=== PATIENT | male | born 1955 | race Two or more races ===

== ENCOUNTER 2020-04-19 15:10 | Outpatient (CLI) | payer OTHER ==
[~2020-04-19 15:10] MED LIST: ADULT ASPIRIN81 MG; CRESTOR5 MG; DIOVAN HCT 320/1 TAB; METFORMIN HYDRO25 GM
== END 2020-04-19 18:00 | disposition home or self-care (01) ==
LOC: LAB 15:10
PROVIDERS: ATTEND Surgery
DX: R97.20 Elevated prostate specific antigen [PSA] (principal)

== ENCOUNTER 2020-05-26 07:38 | Outpatient (CLI) | payer OTHER | END 2020-05-26 07:51 | disposition home or self-care (01) | LOC: SONOGRAMA 07:38 | PROVIDERS: ATTEND Surgery | DX: C61 Malignant neoplasm of prostate (principal); R97.20 Elevated prostate specific antigen [PSA] ==

== ENCOUNTER 2022-04-02 12:00 | Inpatient (IN) | payer OTHER ==
[~2022-04-02] VITALS: Ht 165.1 cm; Wt 88.9 kg
[2022-04-06] MEDS ORDERED: DIOVAN320 MG PO (13:29)
[2022-04-06] MEDS ORDERED: HUMULIN R100 UNIT/1 (13:30)
[2022-04-06] MEDS ORDERED: LANTUS (13:30)
[2022-04-06] MEDS ORDERED: UROXATRAL10 MG PO (13:31)
[2022-04-06] MEDS ORDERED: CIALIS5 MG PO (13:32)
[2022-04-06] MEDS ORDERED: OMEPRAZOLE MAGN20 MG PO (13:33)
[2022-04-06] MEDS ORDERED: MULTIVITAM (13:33)
[2022-04-06] MEDS ORDERED: VICTOZ PO (13:40)
[2022-04-09] MEDS ORDERED: MULTI VITAMIN1 EACH (09:45)
[2022-04-09] MEDS ORDERED: VICTOZA 3-0.6 MG/0.1 (09:46)
[2022-04-10] MEDS ORDERED: ULTRACET PO (08:13)
[2022-04-10] MEDS ORDERED: RECTICARE30 GM TOP (08:13)
== END 2022-04-10 12:44 | disposition home or self-care (01) | DRG 376 ==
LOC: O/R 04-09 06:20 → SURH 04-09 11:15 → SURG 04-09 11:41
PROVIDERS: ADMIT Surgery; ATTEND Surgery
PROC: 3E0T3BZ Introduction of Anesthetic Agent into Peripheral Nerves and Plexi, Percutaneous Approach (ICD-10-PCS; 2022-04-09)
PROC: 0DJD8ZZ Inspection of Lower Intestinal Tract, Via Natural or Artificial Opening Endoscopic (ICD-10-PCS; 2022-04-09)
PROC: 0DBP8ZZ Excision of Rectum, Via Natural or Artificial Opening Endoscopic (ICD-10-PCS; principal; 2022-04-09 17:30)
DX: C7A.026 Malignant carcinoid tumor of the rectum (principal); Z20.822 Contact with and (suspected) exposure to COVID-19
CPT/HCPCS: 0184T; 64430; 45300

== ENCOUNTER 2025-04-08 10:00 | Day surgery (SDC) | payer OTHER ==
[2025-03-30 09:23] LABS: BASO % 0.3 % (0.1-1.2); EOS # 0.18 (0.04-0.54); EOS % 2.9 % (0.7-7.0); LYMPH # 0.93 (1.18-3.74); LYMPH % 15.1 % (19.3-53.1); MEAN PLATELET VOLUME 11.10 fl (9.4-12.4); MONO # 0.59 (0.24-0.82); MONO % 9.6 % (4.7-12.5); NEUT # 4.41 (1.56-6.13); NEUT % 71.9 % (34.0-71.1); RED CELL DISTRIBUTION WIDTH 11.8 % (11.6-14.4)
[2025-03-30 09:47] LABS: INR 1.09
[2025-03-30 09:58] LABS: BUN CREA RATIO 18.0 (7.0-25.0); CREATININE SERUM 1.56 mg/dL (0.70-1.30); GFR 44.22; GLUCOSE FASTING 152.0 mg/dL (65-100); OSMOLALITY SERUM 292.0 MOSM/KG (275-295)
[2025-04-07 07:29] LABS: URINE APPEARANCE Clear; URINE BILIRRUBIN Negative (NEGATIVE); URINE BLOOD Trace; URINE COLOR Yellow; URINE GLUCOSE Negative (NEGATIVE); URINE KETONE Negative (NEGATIVE); URINE LEUKOCYTE Negative; URINE NITRATE Negative; URINE PROTEIN Negative (NEGATIVE); URINE UROBILINOGEN 0.2 E.U./dl
[2025-04-07 07:32] LABS: URINE BACTERIA 27.5 uL (0.0-1933); URINE RBC 3.6 uL (0.0-20.8)
[2025-04-07 07:55] LABS: URINE CAST 0.14 uL (0.0-1.40); URINE EPITHELIAL CELLS 1.0 uL (0.0-38.8); URINE WBC 1.5 uL (0.0-23.2)
[~2025-04-08 10:00] MED LIST changes: +CEFAZOLIN SODIUM 1,000 MG VIAL ONE; +CHLORTHALIDONE25 MG PO; +CIALIS5 MG PO; +DIOVAN320 MG PO; +HUMULIN R100 UNIT/1; +LANTUS; +LIPITOR20 MG; +MOUNJARO15 MG/0.5; +MULTI VITAMIN1 EACH; +MULTIVITAM; +OMEPRAZOLE MAGN20 MG PO; +RECTICARE30 GM TOP; +ULTRACET PO; +UROXATRAL10 MG PO; +VICTOZ PO; +VICTOZA 3-0.6 MG/0.1
[2025-04-08] MEDS ORDERED: BUPIVACAINE HCL/MPF 0.5% 30ML VIAL ONE (10:31)
[2025-04-08] MEDS ORDERED: SUGAMMADEX SODIUM 200 MG/2 ML VIAL IV ONE (11:59)
[2025-04-08] MEDS ORDERED: MIRALAX17 GM PO (12:06)
[2025-04-08] MEDS ORDERED: TRAMADOL HCL50 MG PO (12:06)
[2025-04-08] MEDS ORDERED: TYLENOL ARTHRI650 MG PO (12:06)
[2025-04-12] MEDS ORDERED: CEFAZOLIN SODIUM 1,000 MG VIAL IV SCH (06:30)
[2025-04-12] MEDS ORDERED: SUGAMMADEX SODIUM 200 MG/2 ML VIAL IV ONE (06:30)
== END 2025-04-08 20:00 | disposition home or self-care (01) ==
LOC: CIR.AMB 10:00
PROVIDERS: ATTEND Surgery
DX: K40.90 Unilateral inguinal hernia, without obstruction or gangrene, not specified as recurrent (principal); K42.0 Umbilical hernia with obstruction, without gangrene
CPT/HCPCS: 49650; 49592; C1781